=== PATIENT | male | born 1950 | race Asian ===

== ENCOUNTER 2019-03-03 13:05 | Emergency (ER) | payer SELFPAY ==
[2019-03-03 13:21] VITALS: BP 138/74
[2019-03-03] MEDS ORDERED: Tetan/Diph/Pertus SYR(Tdap)* 0.5 ML SYR(BOOSTRIX) use SYR IM ONE (13:41)
--- NOTE | 2019-03-03 13:48 | UC ---
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, [employer] - friend in room Onset/Duration: Sudden Onset Onset Of Pain: Immediate Severity Initially: Moderate Severity Currently: Mild Pain Intensity: 2 Mechanism Of Injury: Fall From A Standing Position Aggravating Factor(s): Nothing Alleviating Factor(s): Nothing Associated Signs And Symptoms: Negative: Loss Of Consciousness - Allergies/Home Medications Allergies/Adverse Reactions: Allergies Allergy/AdvReac Type Severity Reaction Status Date / Time No Known Allergies Allergy Verified 03/03/19 13:13 Home Medications: Home Medications Sitagliptin Phosphate [Januvia] 03/03/19 [History] metFORMIN* [Glucophage 500 MG TAB *] 1,000 mg PO BID 03/03/19 [History Confirmed 03/03/19] PMH/Surg Hx/FS Hx/Imm Hx Previously Healthy: Yes Endocrine History: Diabetes, Dyslipidemia - Surgical History Surgical History: Yes Surgery Procedure, Year, and Place: Tonsillectomy - Family History Known Family History: Positive: Hypertension - Social History Occupation: Employed Full-time Lives: With Family Alcohol Use: None Substance Use Type: None Smoking Status (MU): Never Smoked Tobacco - Immunization History Hx Tetanus, Diphtheria Vaccination: No - over 10 years Review of Systems All Other Systems Reviewed And Are Negative: Yes Constitutional: Positive: Negative Skin: Positive: Other - abrasions Eyes: Positive: Negative ENT: Negative: Epistaxis, Nasal Discharge Respiratory: Positive: Negative. Negative: Shortness Of Breath Cardiovascular: Positive: Negative. Negative: Chest Pain Gastrointestinal: Positive: Negative. Negative: Abdominal Pain Musculoskeletal: Positive: Negative. Negative: Decreased ROM Neurological: Positive: Negative. Negative: Headache, Weakness Psychological: Positive: Negative Is Patient Immunocompromised?: No Physical Exam Triage Information Reviewed: Yes Appearance: Well-Appearing, No Pain Distress, Well-Nourished Vital Signs: Initial Vital Signs Temp 98.5 F 03/03/19 13:11 Pulse 77 03/03/19 13:11 Resp 18 03/03/19 13:11 BP 138/74 03/03/19 13:11 Pulse Ox 98 03/03/19 13:11 Vital Signs Reviewed: Yes Eye Exam: Normal Eyes: Positive: Conjunctiva Clear ENT: Positive: Other - no nasal/facial deformity, full ROM jaw, bilateral nostrils patent. Negative: Nasal congestion, Nasal drainage Dental Exam: Normal Dental: Negative: Percussion Tenderness @, Dental Fracture @ Neck exam: Normal Neck: Positive: Supple, Nontender Respiratory Exam: Normal Respiratory: Positive: Lungs clear Cardiovascular Exam: Normal Cardiovascular: Positive: RRR Abdominal Exam: Normal Abdomen Description: Positive: Nontender, Soft Bowel Sounds: Positive: Present Musculoskeletal Exam: Normal Musculoskeletal: Positive: Strength Intact, ROM Intact Neurological Exam: Normal Neurological: Positive: Alert Psychological Exam: Normal Psychological: Positive: Normal Response To Family Skin Exam: Other - several superficial abrasions on face, upper lip (no intraoral lacs), bilateral knees Minor Trauma Course/Dx - Differential Dx/Diagnosis Differential Diagnosis/HQI/PQRI: Abrasion(s), Contusion(s), Fracture Provider Diagnosis: Abrasion, Contusion Discharge - Sign-Out/Discharge Documenting (check all that apply): Patient Departure All imaging exams completed and their final reports reviewed: No Studies - Discharge Plan Condition: Good Disposition: HOME Patient Education Materials: Diphtheria/Pertussis/Tetanus Vaccine (By injection ), Contusion in Adults (ED), Abrasion (ED) Referrals: No Primary Care Phys,NOPCP [Primary Care Provider] - Additional Instructions: apply ice packs to facial and knee wounds keep wound clean and dry use ibuprofen 600mg eveyr 6 hours as needed for pain. take with food apply thin layer bacitracin ointment to wounds once daily return here if signs of infection occur - Billing Disposition and Condition Condition: GOOD Disposition: Home
== END 2019-03-03 14:05 | disposition home or self-care (01) ==
LOC: UCEAST 13:05
DX: S00.81XA Abrasion of other part of head, initial encounter (principal); S00.511A Abrasion of lip, initial encounter; S80.212A Abrasion, left knee, initial encounter; S80.211A Abrasion, right knee, initial encounter; W18.30XA Fall on same level, unspecified, initial encounter; Y93.01 Activity, walking, marching and hiking; Y92.9 Unspecified place or not applicable; Z23 Encounter for immunization; E11.9 Type 2 diabetes mellitus without complications; Z79.84 Long term (current) use of oral hypoglycemic drugs; E78.5 Hyperlipidemia, unspecified
CPT/HCPCS: 90471; 90715; 99202; G0463